=== PATIENT | female | born 1970 | race Caucasian/White ===

== ENCOUNTER 2016-04-18 16:44 | Emergency (ER) | payer OTHER ==
[~2016-04-18] VITALS: Wt 57.0 kg
[2016-04-18] MEDS ORDERED: IBUPROFEN 600 MG TAB PO ONE (18:00)
--- NOTE | 2016-04-18 19:34 | RADRPT ---
PROCEDURE: XR Hip. CLINICAL INDICATION: Pain. TECHNIQUE: AP and frog lateral views of the right hip were performed. COMPARISON: None. FINDINGS: There is normal mineralization and alignment. No acute fracture identified. There are several colonic lesions along the right inferior pubic ramus, at least two sclerotic lesio n in the right femoral head, and sclerotic lesion in the lesser trochanter. There are normal joints without evidence of arthritis or effusion. The soft tissues are unremarkable . IMPRESSION: Several sclerotic lesions along the right inferior pubic ramus, femoral head and lesser trochanter. 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 However no acute fracture identified. .Zoe Li MD, MD Date Time Electronically viewed and signed by .Zoe Li MD, on 04/18/2016 19:34 .M/
--- NOTE | 2016-04-18 19:37 | RADRPT ---
PROCEDURE: XR Lumbar Spine. CLINICAL INDICATION: Lower back pain. TECHNIQUE: AP, lateral, oblique, and cone-down lateral views of the lumbar spine were obtained. COMPARISON: No prior studies are available for comparison. FINDINGS: There is normal vertebral mineralization and alignment. There are multilevel sclerotic lesions withi n the vertebral bodies and lateral ribs consistent with osseous metastatic disease. No fracture or s ubluxation is seen. The disc spaces are normal in appearance. The posterior elements are unremarkabl e. The soft tissues appear normal. IMPRESSION: 1. No vertebral compression fracture identified 2. Multiple sclerotic lesions identified within the lumbar spine and lateral ribs consistent with os seous metastatic disease. RPTAT: EE .Zoe Li MD, Date Time Electronically viewed and signed by .Zoe Li MD, on 04/18/2016 19:37 .M/
[2016-04-18] MEDS ORDERED: ACET1TAB40 PO (19:39)
--- NOTE | 2016-04-18 19:43 | ERD ---
ER Documentation Chief Complaint Date/Time DATE: 04/18/16 TIME: 19:41 Chief Complaint RIGHT THIGH PAIN S/P GLF, NO KO HPI This 45-year-old female slipped in a store today and fell onto her right buttocks. Complaints of pain in her right hip mild in her lower back. She has a history of metastatic bone disease unspecified and is currently being treated for this. She denies any bowel or bladder incontinence, weakness. ROS All systems reviewed and are negative except as per history of present illness. Medications Home Meds Active Scripts Acetaminophen with Codeine (Acetaminophen-Cod #3 Tablet) 1 Each Tablet, 1 TAB PO Q6H Y for PAIN, #15 TAB Prov:LUCIE ATWOOD MD 04/18/16 Allergies Allergies: Coded Allergies: No Known Allergy (Unverified , 04/18/16) PMhx/Soc History of Surgery: No Anesthesia Reaction: No Hx Neurological Disorder: No Hx Respiratory Disorders: No Hx Cardiac Disorders: No Hx Psychiatric Problems: No Hx Miscellaneous Medical Probl: Yes (STAGE 4 BONE CANCER) Hx Alcohol Use: No Hx Substance Use: No Hx Tobacco Use: No Smoking Status: Never smoker Physical Exam Vitals Vital Signs Date Time Temp Pulse Resp B/P Pulse Ox O2 Delivery O2 Flow Rate FiO2 04/18/16 16:49 97.6 91 17 133/88 100 Physical Exam Const: [] Alert, [id number]. Head: Atraumatic Eyes: Normal Conjunctiva ENT: Normal External Ears, Nose and Mouth. Neck: Full range of motion..~ No meningismus. Resp: Clear to auscultation bilaterally Cardio: Regular rate and rhythm, no murmurs Abd: Soft, non tender, non distended. Normal bowel sounds Skin: No petechiae or rashes Back: No midline or flank tenderness. Mild general lumbar paraspinous tenderness without appreciable deformities or bony tenderness. Ext: No cyanosis, or edema tenderness primarily medially on the right greater trochanter. Other extremity is neurovascular intact. No appreciable tenderness below this area. Neur: Awake and alert Psych: Normal Mood and Affect Results 24 hrs Current Medications Medications (Trade) Dose Ordered Sig/Royer Route PRN Reason Start Time Stop Time Status Last Admin Dose Admin Ibuprofen (Motrin) 600 mg ONCE ONCE PO 04/18/16 18:00 04/18/16 18:01 DC 04/18/16 17:57 Procedures/MDM HCG is negative. X-ray LS-Spine 3V Interpreted by me: Bones: [No fracture] there are sclerotic lesions consistent with patient's history of metastatic bone disease. Joints: [No dislocation] Foreign body: [None]. Impression-no acute findings of fracture dislocation. X-ray right hip 2V Interpreted by me: Bones: [No fracture] multiple sclerotic lesions consistent with patient' s history of metastatic bone disease. Joints: [No dislocation] Foreign body: [None]. Impression-no fracture or dislocation noted on right hip x-ray Patient was given ibuprofen for pain. Patient was not be comfortable non-ill- appearing amatory and heels throughout the ED course. Patient appears to have a right hip contusion and lumbar strain without evidence of fracture, dislocation, neurologic deficit. She will treated with Tylenol 3 at home instructions to follow-up with primary care doctor. The patient was stable with no new complaints during the ER course. Clinically, there is no current evidence to suggest meningitis, sepsis, acute abdomen, pneumonia, acute coronary syndrome, pulmonary embolism, or any other emergent condition appearing to require further evaluation or hospitalization. The patient should certainly return for any new or worsening symptoms per the aftercare instructions. They should otherwise follow-up with her primary care doctor for reevaluation this week. Departure Diagnosis: Primary Impression: Contusion of hip, right Additional Impression: Fall with no significant injury Encounter type: initial encounter Qualified Code: W19.XXXA - Fall with no significant injury, initial encounter Condition: Stable Patient Instructions: Hip Contusion Additional Instructions: X-rays read as no acute fractures. Recheck with primary doctor or for new or worsening symptoms. LUCIE ATWOOD MD Apr 18, 2016 19:43
== END 2016-04-18 20:25 | disposition home or self-care (01) ==
LOC: FTE 16:44
DX: S70.01XA Contusion of right hip, initial encounter (principal); C79.51 Secondary malignant neoplasm of bone; C80.1 Malignant (primary) neoplasm, unspecified; W01.0XXA Fall on same level from slipping, tripping and stumbling without subsequent striking against object, initial encounter; Y92.512 Supermarket, store or market as the place of occurrence of the external cause
CPT/HCPCS: 72100; 73510; Z7610